=== PATIENT | female | born 1970 | race Caucasian/White ===

== ENCOUNTER → 2016-12-26 | Outpatient (CLI) | payer BC ==
[~2016-12-26] MED LIST: COLACE100 MG PO; COUMADIN ** IA5 MG PO; DILAUDID 2MG(HYD2 MG PO; LIORESAL10 MG PO; LOVENOX120 MG/0.8 SUB-Q; MIRALAX17 GM PO; MOBIC15 MG PO; NEURONTIN300 MG PO; NORCO 5-325 MG1 TAB PO; PRENATAL 1+1)(P1 TAB PO; PROCARDIA XL60 MG PO; TYLENOL EXTRA500 MG PO; VALIUM5 MG PO; XARELTO20 MG PO
== END | disposition disaster alternative care site (69) ==
LOC: GRAD 12:28
PROC: 3E0U33Z Introduction of Anti-inflammatory into Joints, Percutaneous Approach (ICD-10-PCS; principal; 2016-12-26)
PROC: 3E0U3BZ Introduction of Anesthetic Agent into Joints, Percutaneous Approach (ICD-10-PCS; 2016-12-26)
DX: M25.562 Pain in left knee (principal); M17.12 Unilateral primary osteoarthritis, left knee